=== PATIENT | female | born 1965 ===

== ENCOUNTER → 2023-10-05 | Outpatient (CLI) | payer OTHER ==
[~2023-10-05] MED LIST: FISH OIL PO; GLIM4 PO; METF500 PO; PIOG15 PO
[2023-10-05 10:46] LABS: BASOPHILS ABSOLUTE AUTO 0.07 K/mm3 (0.00-0.23); BASOPHILS PERCENT AUTO 1 % (0-2); EOSINOPHILS ABSOLUTE AUTO 0.24 K/mm3 (0.00-0.68); EOSINOPHILS PERCENT AUTO 4 % (0-6); Hematocrit 39.5 % (33.0-51.0); Hemoglobin 13.1 g/dL (11.5-16.0); IMMATURE GRAN ABSOLUTE AUTO 0.03 K/mm3 (0.00-0.10); IMMATURE GRAN PERCENT AUTO 1 % (0-1); LYMPHOCYTES PERCENT AUTO 12 % (21-46); MONOCYTES ABSOLUTE AUTO 0.52 K/mm3 (0.16-1.47); MONOCYTES PERCENT AUTO 8 % (4-13); Mean Corpuscular HGB 30.6 pg (26.0-34.0); Mean Corpuscular HGB Conc 33.2 g/dL (31.5-36.5); Mean Corpuscular Volume 92 fL (80-100); NEUTROPHILS PERCENT AUTO 74 % (41-73); Platelet Count 335 K/mm3 (150-400); RDW Coefficient Variation 12.4 % (11.7-14.2); RDW Standard Deviation 42.2 fL (35.1-46.3); Red Blood Cell Count 4.28 M/mm3 (3.80-5.20); White Blood Cell Count 6.46 K/mm3 (4.00-11.30)
[2023-10-05 11:08] LABS: Albumin, Blood 3.2 g/dL (3.4-5.0); Albumin/Globulin Ratio 0.8 (0.8-1.8); Bilirubin, Total 0.3 mg/dL (0.1-1.0); Bun/Creatinine Ratio 24.1 (12.0-20.0); Calcium, Blood 9.4 mg/dL (8.5-10.1); Creatinine, Blood 0.67 mg/dL (0.40-1.00); Globulin, Blood 3.8 g/dL (2.2-4.0)
== END ==
LOC: LAB SHORT 09:56 → LAB 09:56
PROVIDERS: Internal Medicine Hematology & Oncology
DX: C50.812 Malignant neoplasm of overlapping sites of left female breast (principal)
CPT/HCPCS: 80053; 85025

== ENCOUNTER 2023-12-17 07:47 | Day surgery (SDC) | payer OTHER ==
[~2023-12-17] VITALS: Ht 160 cm; Wt 101.4 kg
[2023-12-17] VITALS (16 sets, daily range): BP systolic 97–141; BP diastolic 63–82
[2023-12-17] MEDS ORDERED: FentaNYL Citrate 50 MCG/ML 2 ML Injection ONE ×2 (08:32→12:18)
[2023-12-17] MEDS ORDERED: propofoL 20 ML IV ONE (08:32)
[2023-12-17] MEDS ORDERED: Ketorolac Tromethamine 30mg Vial ONE (08:33)
[2023-12-17] MEDS ORDERED: Dexamethasone Sod Phos 10 MG/ML 1ML VIAL ONE (08:33)
[2023-12-17] MEDS ORDERED: Ondansetron HCl 2 MG / ML 2ML Vial ONE (08:33)
[2023-12-17] MEDS ORDERED: Lidocaine HCl 1% 5 ML SYR INJ ONE (08:35)
[2023-12-17] MEDS ORDERED: Midazolam HCl 1MG / ML 2ML Vial IV PRN (08:35)
[2023-12-17] MEDS ORDERED: CeFAZolin Sodium 2,000 MG in NS 100 ML IV SCH (08:40)
[2023-12-17] MEDS ORDERED: Lactated Ringer's 1,000 ML IV SCH (08:40)
--- NOTE | 2023-12-17 08:59 | NUR ---
Ambulatory in Day Surgery.Pt appears anxious and slightly withdrawn. History, Chart, Medications and Allergies reviewed before start of procedure.Lungs clear T/O to Auscultation. Patient confirms NPO status and agrees with scheduled surgery. Patient reports completing Chlorhexadine shower X2 prior to admission to hospital.Surgical site prepped with 2% Chlorhexidine cloth wipe. Patient States Post-Procedure ride home has been arranged.
[2023-12-17] MEDS ORDERED: Methylene Blue 1% 100 MG/10 ML VIAL ONE (09:26)
[2023-12-17] MEDS ORDERED: Bupivacaine 0.5% HCl 5 MG/ML 30MLVIAL ONE (09:26)
[2023-12-17] MEDS ORDERED: HYDROcodone 5-APAP 325 TAB PO PRN (12:30)
--- NOTE | 2023-12-17 13:20 | NUR ---
1255 RECEIVED PT FROM PACU AWAKE, VSS. LEFT BREAST BRYCE AXILLARY D&I STERI STRIPS INTACT. SMALL BRUISING TO BREAST NOTED. JELLO AND WATER GIVEN YARITZA WELL 1305 PO PAIN PILL GIVEN, ICE PACK PLACED TO LEFT BREAST. 1320 CARE TURNED OVER TO MAISHA COE
--- NOTE | 2023-12-17 14:25 | NUR ---
Discharge instructions reviewed with patient. Patient verbalizes understanding. Copy given to patient to take home. Dressings c/d/i. Breast binder in place. Prescription placed in discharge folder. Patient States Post-Procedure ride home has been arranged. Discharged via wheelchair to private car for ride home.
== END 2023-12-17 14:10 | disposition home or self-care (01) ==
LOC: ORSCMMR 07:47 → NM 07:47
PROVIDERS: Surgery
PROC: 0HBU0ZZ Excision of Left Breast, Open Approach (ICD-10-PCS; principal; 2023-12-17 09:30)
PROC: 0JPT3WZ Removal of Totally Implantable Vascular Access Device from Trunk Subcutaneous Tissue and Fascia, Percutaneous Approach (ICD-10-PCS; principal; 2023-12-17 09:30)
PROC: 07B60ZX Excision of Left Axillary Lymphatic, Open Approach, Diagnostic (ICD-10-PCS; principal; 2023-12-17 09:30)
DX: C50.812 Malignant neoplasm of overlapping sites of left female breast (principal); Z17.1 Estrogen receptor negative status [ER-]; Z17.32 Human epidermal growth factor receptor 2 negative status; Z17.22 Progesterone receptor negative status; C77.3 Secondary and unspecified malignant neoplasm of axilla and upper limb lymph nodes; Z80.3 Family history of malignant neoplasm of breast; E11.9 Type 2 diabetes mellitus without complications; Z79.84 Long term (current) use of oral hypoglycemic drugs; Z79.899 Other long term (current) drug therapy; F17.290 Nicotine dependence, other tobacco product, uncomplicated
CPT/HCPCS: 38792; 82947; 88307; 88331; A9270; A9520; J0690; J1100; J1885; J2250; J2405; J2704; J3010; J7120; Q9968